=== PATIENT | male | born 2000 | race Caucasian/White ===

== ENCOUNTER 2019-08-30 10:06 | Emergency (ER) | payer OTHER ==
[~2019-08-30] VITALS: Ht 172.7 cm; Wt 70.3 kg
== END 2019-08-30 13:44 | disposition home or self-care (01) ==
LOC: ER 10:06
DX: S90.112A Contusion of left great toe without damage to nail, initial encounter (principal); W22.8XXA Striking against or struck by other objects, initial encounter; Y93.89 Activity, other specified; Y92.89 Other specified places as the place of occurrence of the external cause; Y99.8 Other external cause status

== ENCOUNTER 2020-08-07 16:04 | Inpatient (IN) | payer OTHER ==
[~2020-08-07] VITALS: Ht 152.4 cm; Wt 72.6 kg
--- NOTE | 2020-08-07 16:20 | NUR ---
SE RECIBE PACIENTE ALERTA, ORIENTADA X 3 ESFERAS REFIERE TENER DOLOR EN AREA DE ABDOMEN BAJA DESDE EL MIERCOLES SE UBICA EN ARE KARI OBSERVACION.
--- NOTE | 2020-08-07 17:44 | NUR ---
SE ORIENTA A PTE SOBRE PROCESO DE VENOPUNCION, MARIE DE MUESTRAS, ADMINISTRACION DE MED IV PTE REFIERE ENTENDER INF VASILE. AREA DE VENOPUNCION, SE ENCUENTRA PATENTE JORDAN DE EDEMA Y ENROJECIMIENTO CON IV FLUID PATENTE. SE MANTIENE PTE EN ESPERA DE ESTUDIO A REALIZAR.
== END 2020-08-16 11:52 | disposition home or self-care (01) | DRG 373 ==
LOC: ER 16:04 → SURH 19:05
PROVIDERS: ADMIT Surgery; ATTEND Surgery
PROC: BW21ZZZ Computerized Tomography (CT Scan) of Abdomen and Pelvis (ICD-10-PCS; 2020-08-07)
PROC: 02HV33Z Insertion of Infusion Device into Superior Vena Cava, Percutaneous Approach (ICD-10-PCS; principal; 2020-08-11)
PROC: BW20YZZ Computerized Tomography (CT Scan) of Abdomen using Other Contrast (ICD-10-PCS; 2020-08-12)
DX: K35.32 Acute appendicitis with perforation, localized peritonitis, and gangrene, without abscess (principal); E16.1 Other hypoglycemia; Z20.828 Contact with and (suspected) exposure to other viral communicable diseases

== ENCOUNTER 2020-09-19 09:06 | Outpatient (CLI) | payer OTHER | END 2020-09-19 09:27 | disposition HB | LOC: TOM 09:06 | PROVIDERS: ATTEND Surgery | DX: K35.890 Other acute appendicitis without perforation or gangrene (principal) ==

== ENCOUNTER 2020-10-11 05:30 | Day surgery (SDC) | payer OTHER | END 2020-10-11 11:00 | disposition home or self-care (01) | LOC: CIR.AMB 05:30 | PROVIDERS: ATTEND Surgery | DX: K36 Other appendicitis (principal); Z20.822 Contact with and (suspected) exposure to COVID-19 ==

== ENCOUNTER 2022-01-21 10:14 | Emergency (ER) | payer OTHER ==
[~2022-01-21] VITALS: Ht 172.7 cm; Wt 74.8 kg
== END 2022-01-21 14:05 | disposition home or self-care (01) ==
LOC: ER 10:14
DX: B34.9 Viral infection, unspecified (principal); J02.9 Acute pharyngitis, unspecified; Z20.822 Contact with and (suspected) exposure to COVID-19; Z91.013 Allergy to seafood

== ENCOUNTER 2022-10-10 10:23 | Emergency (ER) | payer OTHER ==
[~2022-10-10] VITALS: Ht 172.7 cm; Wt 74.8 kg
== END 2022-10-10 14:08 | disposition home or self-care (01) ==
LOC: ER 10:23
DX: B34.9 Viral infection, unspecified (principal); Z20.822 Contact with and (suspected) exposure to COVID-19; Z91.013 Allergy to seafood